=== PATIENT | female | born 1985 | race American Indian/Alaskan Native ===

== ENCOUNTER 2017-10-07 04:41 | Outpatient (CLI) | payer BC ==
[2017-10-07 05:03] VITALS: BP 120/58
== END 2017-10-07 05:42 | disposition home or self-care (01) ==
LOC: TRG 04:41
PROVIDERS: ATTEND Obstetrics & Gynecology
DX: O62.9 Abnormality of forces of labor, unspecified (principal); Z3A.39 39 weeks gestation of pregnancy
CPT/HCPCS: 59025